=== PATIENT | male | born 1955 | race Caucasian/White ===

== ENCOUNTER 2018-11-14 08:45 | Inpatient (IN) | payer OTHER ==
[~2018-11-14 08:45] MED LIST: Dexamethasone 4 MG/ML SDV ONE; Glycopyrrolate 0.2 MG/ML 5 ML MDV ONE; Neostigmine Methylsulfate 1 MG/ML 5 ML Syringe ONE; Ondansetron 4 MG/2 ML SDV ONE; Propofol 200 MG/20 ML SDV ONE; Rocuronium 50 MG/5 ML Vial ONE; Succinylcholine 200 MG/10 ML MDV ONE; cefOXitin 2 GM Vial ONE
[2018-11-14] MEDS ORDERED: Acetaminophen 500 MG Tab PO ONE (09:15)
[2018-11-14] MEDS ORDERED: Celecoxib 200 MG Cap PO ONE (09:15)
[2018-11-14] MEDS ORDERED: Scopolamine 1.5 MG Transdermal Patch TOP SCH (09:15)
[2018-11-14] MEDS ORDERED: Gabapentin 300 MG Cap PO ONE (09:15)
[2018-11-14] MEDS ORDERED: Dextrose 5%-Lactated Ringers 1,000 ML IV SCH (09:30)
[2018-11-14] MEDS ORDERED: cefOXitin 2 GM in Sodium Chloride 0.9% 50 ML IV ONE (10:00)
[2018-11-14] MEDS ORDERED: Ketamine 500 MG/5 ML MDV IV SCH (10:30)
[2018-11-14] MEDS ORDERED: Lidocaine 0.4%/D5W 2 GM/500 ML BAG IV SCH (10:30)
[2018-11-14] MEDS ORDERED: Lidocaine 2% 100 MG/5 ML Syringe IVPUSH SCH (10:30)
[2018-11-14] MEDS ORDERED: Ketamine 50 MG in Sodium Chloride 0.9% 49.5 ML IV SCH (10:30)
[2018-11-14] MEDS ORDERED: Ropivacaine 60 ML, Dexamethasone 8 MG, EPINEPHrine 0.4 MG, Sodium Chloride 0.9% 17.6 ML NERVRT SCH ×4 (10:30)
[2018-11-14] MEDS ORDERED: Atropine 0.1 MG/ML 10 ML Syringe ONE (11:13)
[2018-11-14] MEDS ORDERED: Rocuronium 50 MG/5 ML Vial ONE (12:31)
[2018-11-14] MEDS ORDERED: hydrOXYzine HCl 100 MG/2 ML SDV IM ONE (13:47)
[2018-11-14] MEDS ORDERED: hydrOXYzine HCl 100 MG/2 ML SDV IM PRN (14:45)
[2018-11-14] MEDS ORDERED: Ondansetron 4 MG/2 ML SDV IVPUSH PRN (14:45)
[2018-11-14] MEDS ORDERED: Labetalol 20 MG/4 ML Syringe IVPUSH PRN (14:45)
[2018-11-14] MEDS ORDERED: HYDROmorphone 0.5 MG/0.5 ML Syringe IVPUSH PRN (14:45)
[2018-11-14] MEDS ORDERED: Metoclopramide 10 MG/2 ML SDV IVPUSH PRN (14:45)
[2018-11-14] MEDS ORDERED: diphenhydrAMINE 50 MG/ML SDV IVPUSH PRN (14:45)
[2018-11-14] MEDS: Pantoprazole 40 MG Vial IVPUSH SCH (16:14)
[2018-11-14] MEDS: MVI, Adult with Vitamin K 10 ML, Thiamine 100 MG, Chromium/Copper/Mang/Selen/Zn 1 ML in... IV SCH ×4 (16:14)
[2018-11-14] MEDS: cefOXitin 2 GM in Sodium Chloride 0.9% 50 ML IV SCH ×2 (16:17→22:47)
[2018-11-14] MEDS: Acetaminophen Soln 650 MG/20.3 ML UD Cup PO SCH ×2 (16:17→21:33)
[2018-11-14] MEDS: Heparin Sodium 5,000 Units/ML Vial SUBCUT SCH (17:31)
[2018-11-14] MEDS: Gabapentin 250 MG/5 ML Solution ML 470 ML Bottle PO SCH (21:30)
[2018-11-14] MEDS: Dextrose 5%-Lactated Ringers 1,000 ML IV SCH (22:43)
[2018-11-14] MEDS ORDERED: Lactated Ringers 500 ML IV ONE (23:45)
[2018-11-15] MEDS ORDERED: Benzocaine/Cetylpyridinium/Menthol Lozenge MUCMEM PRN (01:07)
[2018-11-15] MEDS ORDERED: Iohexol 647 MG/ML 50 ML SDV PO STA (01:20)
[2018-11-15] MEDS: Heparin Sodium 5,000 Units/ML Vial SUBCUT SCH ×3 (02:21→18:10)
--- NOTE | 2018-11-15 02:37 | CRLCR ---
Indication: Abdomen pain Technique: Abdomen 2 view. Comparison: None. Findings: Two submitted abdominal images. The 1st shows contrast within the distal esophagus as well as within a C-shaped area, likely the patient`s stomach status post gastric sleeve. Second film shows contrast into the duodenum with a small residual in the stomach. No gross extravasation on the submitted images. Impression: Submitted abdominal films with oral contrast extending to the small intestine without gross extravasation. Dictated by Tae Titus MD @ Nov 15 2018 2:29AM Signed by Dr. Tae Titus @ Nov 15 2018 2:35AM
[2018-11-15] MEDS: cefOXitin 2 GM in Sodium Chloride 0.9% 50 ML IV SCH (05:04)
[2018-11-15] MEDS: Dextrose 5%-Lactated Ringers 1,000 ML IV SCH (05:05)
[2018-11-15] MEDS: Acetaminophen Soln 650 MG/20.3 ML UD Cup PO SCH ×4 (05:07→22:48)
[2018-11-15] MEDS: Celecoxib 200 MG Cap PO SCH (07:23)
[2018-11-15] MEDS ORDERED: Ondansetron 4 MG Tab.DIS PO PRN (07:50)
[2018-11-15] MEDS ORDERED: Dextrose 5%-Lactated Ringers 1,000 ML IV SCH (08:00)
[2018-11-15] MEDS ORDERED: Metoprolol Succinate 25 MG Tab.ER PO SCH ×2 (09:00)
[2018-11-15] MEDS: Chlorthalidone 25 MG Tab PO SCH (09:46)
[2018-11-15] MEDS: amLODIPine 5 MG Tab PO SCH (09:47)
[2018-11-15] MEDS: Aspirin 81 MG Tab.EC PO SCH (09:51)
[2018-11-15] MEDS: SCOPOLAMINE PATCH CHECK TOP SCH (09:52)
[2018-11-15] MEDS: Gabapentin 250 MG/5 ML Solution ML 470 ML Bottle PO SCH ×3 (09:53→22:13)
[2018-11-15] MEDS: Lisinopril 20 MG Tab PO SCH (09:54)
--- NOTE | 2018-11-15 10:22 | PN ---
DATE OF SERVICE: 11/15/2018 SUBJECTIVE: Jin is postop day 1, following a sleeve gastrectomy. Upper GI this morning was normal. He has been up ambulating. Pain has been controlled. Tolerating a step 1 gastric bypass diet. REVIEW OF SYSTEMS: Remainder of review of systems negative for any pertinent positives and negatives. OBJECTIVE: GENERAL: Jin Sands is a 63-year-old male. VITAL SIGNS: TPR is 98.7, 50, 16, blood pressure 167/80. HEENT: Negative. NECK: Supple. HEART: Regular rate and rhythm. LUNGS: Clear. ABDOMEN: Dressings dry and intact. DANIEL drain put out 75 mL of a light red drainage. Abdominal binder is on. EXTREMITIES: SCDs are on and there is no peripheral edema. ASSESSMENT: Diagnostic laparoscopy with laparoscopic sleeve gastrectomy, small bowel resection, liver biopsy, repair of diaphragmatic hernia and excision of mediastinal lipoma for morbid obesity, diaphragmatic hernia, and mediastinal lipoma, marked hepatomegaly. Date of surgery is 11/14/2018. Surgeon, Jin Bates MD. PLAN: 1. Decrease IV to 100 mL per hour. 2. Dressing off, may shower. 3. Step 2 gastric bypass diet without cereal. 4. Home Medications: a. Norvasc 5 mg p.o. daily. b. Aspirin 81 mg p.o. daily. c. Chlorthalidone 25 mg p.o. daily. d. Lisinopril 40 mg p.o. daily. e. Metoprolol-XL 25 mg p.o. daily. f. Zofran 4 mg ODT q.4 hours p.r.n. nausea. g. Communication order to give three med cups at bedside and to drink one every 20 minutes or three per hour. If oral intake greater than a 1000 make saline lock IV to continue to work on lungs status with use of IS. 5. We will evaluate p.r.n. or in a.m. Constance Lyon PA-C /[id number]
[2018-11-15] MEDS: Pantoprazole 40 MG Vial IVPUSH SCH (16:14)
[2018-11-15] MEDS: MVI, Adult with Vitamin K 10 ML, Thiamine 100 MG, Chromium/Copper/Mang/Selen/Zn 1 ML in... IV SCH ×4 (16:14)
[2018-11-16] MEDS: Heparin Sodium 5,000 Units/ML Vial SUBCUT SCH ×2 (03:42→09:04)
[2018-11-16] MEDS: Acetaminophen Soln 650 MG/20.3 ML UD Cup PO SCH ×2 (03:42→09:06)
[2018-11-16] MEDS: amLODIPine 5 MG Tab PO SCH (08:38)
[2018-11-16] MEDS: Lisinopril 20 MG Tab PO SCH (08:38)
[2018-11-16] MEDS: Aspirin 81 MG Tab.EC PO SCH (08:38)
[2018-11-16] MEDS: Celecoxib 200 MG Cap PO SCH (08:38)
[2018-11-16] MEDS: Gabapentin 250 MG/5 ML Solution ML 470 ML Bottle PO SCH (08:38)
[2018-11-16] MEDS: SCOPOLAMINE PATCH CHECK TOP SCH (08:39)
[2018-11-16] MEDS: Chlorthalidone 25 MG Tab PO SCH (08:41)
[2018-11-16] MEDS ORDERED: Cyanocobalamin (Vitamin B12) 1,000 MCG/ML SDV IM ONE (09:00)
--- NOTE | 2018-11-16 14:16 | OR ---
DATE OF PROCEDURE: 11/14/2018 PREOPERATIVE DIAGNOSIS: Morbid obesity. POSTOPERATIVE DIAGNOSES: 1. Morbid obesity. 2. Abdominal origin of jejunum abnormally low, requiring conversion of Rashmi-en-Y gastric bypass to a sleeve gastrectomy. 3. Diaphragmatic hernia. 4. Mediastinal lipoma. 5. Marked hepatomegaly. OPERATIVE PROCEDURE: Diagnostic laparoscopy with: 1. Laparoscopic sleeve gastrectomy (94107). 2. Small bowel resection (76829). 3. Antonio-Cut needle liver biopsy (52317). 4. Repair of paraesophageal diaphragmatic hernia (32198). 5. Excision of mediastinal lipoma (56837). ANESTHESIA: General. ASSISTANTS: Constance Lyon PA-C and XI Morales. INDICATIONS FOR PROCEDURE: This is a 63-year-old male, presenting with longstanding morbid obesity and increasingly significant comorbidities. After preoperative evaluation and discussion, he wished to proceed with a gastric bypass procedure. Potential risks of procedure including bleeding, infection, injury to underlying viscera, possible problems with bowel obstruction over time, leaks from various GI tract closures, as well as the possibility of cardiopulmonary, septic or hemorrhagic complications leading to were discussed, and the patient wishes to proceed. DETAILS OF PROCEDURE: The patient was taken to the operating room, and after general endotracheal anesthesia was induced, he was placed in a lithotomy position, and the abdomen was prepped and draped. An orogastric tube was then also placed. Following this, the peritoneal cavity was entered at 15 cm inferior and 5 cm left of xiphoid process with an Optiview trocar inflated to 15 mmHg pressure with CO2. Laparoscope was reinserted. No underlying trocar insertion site injuries were seen. Following this, 5 additional trocars were placed across the upper and mid abdomen, and general exploration was undertaken. Bilateral subcostal transverse abdominis plane blocks were then placed, and the patient was noted to have marked hepatomegaly. Antonio-Cut needle biopsy was obtained from left lobe of the liver. Minimal bleeding from the biopsy sites was controlled with electrocautery. At this point, the omentum was divided in the midline up to the level of the transverse colon. This allowed identification of the small bowel to the ligament of Treitz. Small bowel was then traced out 150 cm distal to that point, where it was divided with a LATRICE stapler. Small bowel was noted to be quite immobile, and there appeared to be a more inferior than normal origin of the jejunum coming out at the level of ligament of Treitz. This resulted in relatively poor mobility of the small bowel. Initially, a segment of the biliopancreatic limb was resected, it would be around 10 cm, with additional LATRICE stapler, and the mesentery was divided with Harmonic stapler. As one then traced out the small bowel 150 cm further distally, it became clear that the entire jejunojejunostomy and small bowel were abnormally located and not able to be safely mobilized up to the level of the esophagogastric junction. Given this, decision was made to proceed with a sleeve gastrectomy, as at this point, it would not be safe to continue with the gastric bypass through the small bowel immobility. This was discussed with the patient's significant other, and she agreed with proceeding. At this point, the small bowel resection site was reconnected with internal firing of the LATRICE 60 mm stapler. The common opening was then closed transversely with the same stapler, angles anastomosed, and mesenteric defect reinforced with some 0 Ethibond stitch, along with fibrin sealant. Attention was then taken to formation of the sleeve gastrectomy. On elevation of the liver, the patient was noted to have a moderate sized paraesophageal diaphragmatic hernia. The peritoneum overlying this was incised and reflected downward. A mediastinal lipoma was encountered during the course of the dissection, and to facilitate a more adequate repair, this was excised. The diaphragmatic hernia was then repaired anteriorly with 0 Ethibond sutures, reinforced with PTFE pledgets. The omentum was then divided away from the greater curvature of the stomach, beginning 2 cm proximal to the pylorus up to and including the highest and posterior short gastric vessels. At that point, we then initiated the gastrectomy excision with 3 firings of the LATRICE black loads, beginning 2 cm proximal to the pylorus, and care taken to avoid overtightening of the incisura angularis. Following this, a 32-Swedish suction tube was placed orally per Anesthesia and positioned along the lesser curvature and then suction applied. Remainder of the gastrectomy was then completed with a combination of black and purple reinforced loads, and the specimen was subsequently delivered from the field. Staple line was inspected. Fibrin sealant was placed along its length and along with omentum. The staple line leak test was accomplished with injection of 120 mL of air in the stomach while the pylorus was being compressed, and the area was then irrigated with antibiotic-containing saline solution. No leaks or air bubbles were seen. At that point, no further problems were noted. A single drain was placed through the left lateral trocar site and positioned along the area of esophagogastric junction and from there up into the splenic fossa. With no further problems noted, trocars were removed and peritoneal cavity deflated. The incision was closed with 4-0 Vicryl skin stitch, dressing applied. The patient was taken to the recovery room in satisfactory condition. Physician office assistant receptionist, Constance Lyon, played an essential role in assisting in this case, helping to position the patient, retract structures as needed, as well as suturing and cutting sutures when indicated. Her presence improved the patient's safety and decreased operative time. Jin Bates MD /[id number]
[2018-11-16] MEDS ORDERED: Pantoprazole 40 MG Delayed-Release Granules 1 Packet PO SCH (16:30)
== END 2018-11-16 11:35 | disposition home or self-care (01) | DRG 620 ==
LOC: JP.SDSSCHI 08:45 → JP.SDS 08:45 → EDSTATUS 09:30 → JP.2SS 13:20 → JP.MS 21:09
PROVIDERS: ADMIT Surgery; ATTEND Surgery
PROC: 0DB64Z3 Excision of Stomach, Percutaneous Endoscopic Approach, Vertical (ICD-10-PCS; principal; 2018-11-14)
PROC: 0DB84ZZ Excision of Small Intestine, Percutaneous Endoscopic Approach (ICD-10-PCS; principal; 2018-11-14)
PROC: 0FB24ZX Excision of Left Lobe Liver, Percutaneous Endoscopic Approach, Diagnostic (ICD-10-PCS; principal; 2018-11-14)
PROC: 0JB83ZZ Excision of Abdomen Subcutaneous Tissue and Fascia, Percutaneous Approach (ICD-10-PCS; principal; 2018-11-14)
PROC: 0BQT4ZZ Repair Diaphragm, Percutaneous Endoscopic Approach (ICD-10-PCS; principal; 2018-11-14)
DX: E66.01 Morbid (severe) obesity due to excess calories (principal); Q43.8 Other specified congenital malformations of intestine; Z68.43 Body mass index [BMI] 50.0-59.9, adult; I15.9 Secondary hypertension, unspecified; M19.90 Unspecified osteoarthritis, unspecified site; G47.33 Obstructive sleep apnea (adult) (pediatric); I15.8 Other secondary hypertension; I48.0 Paroxysmal atrial fibrillation; K44.9 Diaphragmatic hernia without obstruction or gangrene; D17.79 Benign lipomatous neoplasm of other sites; R16.0 Hepatomegaly, not elsewhere classified; Z79.01 Long term (current) use of anticoagulants; Z98.52 Vasectomy status; Z79.899 Other long term (current) drug therapy; Z88.0 Allergy status to penicillin; Z87.891 Personal history of nicotine dependence
CPT/HCPCS: 36415; 74240; 80048; 82962; 83735; 83880; 84100; 85027; 86850; 86900; 86901; 88304; 88305; 88307; 88313; A9270-GY; C9113; J0171; J0330; J0461; J0694; J1100; J1644; J2001; J2405; J2704; J2710; J2795; J3010; J3410; J3411; J3420; J3490; J7042; J7050